=== PATIENT | male | born 1980 | race Hispanic/Latino ===

== ENCOUNTER 2024-05-02 07:16 | Day surgery (SDC) | payer OTHER ==
[~2024-05-02] VITALS: Ht 175.3 cm; Wt 92.0 kg
[~2024-05-02 07:16] MED LIST: GABA-1172 PO; HYDR12.55 PO; TELM1TAB35 PO
[2024-05-02] MEDS ORDERED: dexmedeTOMIDine (4MCG/ML)200MCG/50ML BTL (PRECEDEX) As Ordered ONE (08:36)
[2024-05-02] MEDS ORDERED: fentaNYL 100 MCG/2 ML INJECTION As Ordered ONE (08:36)
[2024-05-02] MEDS ORDERED: propofoL 200 MG/20 ML VIAL As Ordered ONE (08:36)
[2024-05-02] MEDS ORDERED: LIDOCAINE 2% 100MG/5ML SDV (FOR ANES.) As Ordered ONE (08:36)
[2024-05-02] MEDS ORDERED: MIDAZOLAM INJ 2MG/2ML VIAL As Ordered ONE (08:36)
[2024-05-02] MEDS ORDERED: ONDANSETRON 4MG 2ML VIAL As Ordered ONE (08:36)
[2024-05-02] MEDS ORDERED: ACETAMINOPHEN 1000MG/100ML IV BAG As Ordered ONE (08:37)
[2024-05-02] MEDS: ceFAZolin SOD 2 GM in IV 1 EA IV ONE (10:00)
[2024-05-02] MEDS: POVIDONE-IODINE 5% OPHTH PREP SOL 30ML As Ordered ONE (10:08)
[2024-05-02] MEDS: HEPARIN SOD (PORCINE) 5000UNITS/ML 1ML VIAL/SYRINGE SQ ONE (10:25)
[2024-05-02] MEDS: LIDOCAINE 2% W/EPINEPHRINE 20ML VIAL **PRES FREE As Ordered ONE (10:55)
[2024-05-02] MEDS: BACITRACIN OINTMENT 30GM TUBE As Ordered ONE (10:55)
[2024-05-02 11:05] VITALS: BP 130/98; TEMP 98; O2SAT 98
== END 2024-05-02 11:30 | disposition home or self-care (01) ==
LOC: M SDC 07:16
PROVIDERS: ATTEND Plastic Surgery Surgery of the Hand
DX: L91.0 Hypertrophic scar (principal); I10 Essential (primary) hypertension; Z79.899 Other long term (current) drug therapy
CPT/HCPCS: 11423; 12032; 88302; J0131; J0690; J2250; J2405; J3010